=== PATIENT | male | born 1980 | race Caucasian/White ===

== ENCOUNTER → 2020-09-25 | Outpatient (CLI) | payer BC ==
[~2020-09-25] MED LIST: ALL DAY ALLERGY10 M3 PO; BUSPIRONE HCL15 MG PO; MELOXICAM7.5 MG PO; TRAZODONE HCL100 MG PO
[2020-09-25 11:32] LABS: URINE BILIRUBIN NEGATIVE (Negative); URINE BLOOD NEGATIVE (Negative); URINE CLARITY CLEAR; URINE COLOR YELLOW; URINE GLUCOSE-RANDOM* NEGATIVE (Negative); URINE KETONES NEGATIVE (Negative); URINE LEUKOCYTES-REFLEX NEGATIVE (Negative); URINE NITRITE-REFLEX NEGATIVE (Negative); URINE PROTEIN (DIPSTICK) NEGATIVE (Negative); URINE UROBILINOGEN 0.2 E.U./dl (0.2-1.0)
[2020-09-25 11:33] LABS: HEMATOCRIT 44.1 % (42.0-52.0); HEMOGLOBIN 14.7 gm/dL (14.0-18.0); MCH 29.9 pg (26.0-34.0); MCHC 33.3 g/dL (28.0-37.0); MCV 89.8 fL (80.0-100.0); RBC 4.9 mil/uL (4.50-6.00); RDW 13.7 % (10.5-14.5); WBC 4.4 thou/uL (4.0-11.0)
[2020-09-25 11:55] LABS: INR 0.94; PROTIME 10.3 Seconds (10.5-12.1)
[2020-09-25 11:56] LABS: ALBUMIN 3.8 g/dL (3.4-5.0); CALCIUM 8.7 mg/dL (8.5-10.1); CREATININE 0.9 mg/dL (0.7-1.3); POTASSIUM 4.5 mmol/L (3.5-5.1)
== END ==
LOC: PAC 10:21 → LAB 10:35
PROVIDERS: ATTEND Orthopaedic Surgery
DX: Z01.812 Encounter for preprocedural laboratory examination (principal); M17.12 Unilateral primary osteoarthritis, left knee; M17.11 Unilateral primary osteoarthritis, right knee

== ENCOUNTER → 2020-10-09 | Outpatient (CLI) | payer BC | LOC: LAB 09:06 → PAC 11:38 | PROVIDERS: ATTEND Student in an Organized Health Care Education/Training Program | DX: Z01.812 Encounter for preprocedural laboratory examination (principal); Z20.822 Contact with and (suspected) exposure to COVID-19 ==

== ENCOUNTER 2020-10-10 06:01 | Inpatient (IN) | payer BC ==
[~2020-10-10] VITALS: Ht 185.4 cm; Wt 86.2 kg
--- NOTE | ~2020-10-10 | O ---
Formerly [facility] [place] [address] OPERATIVE REPORT Name: JOSEE SOLANO Room #: 150-1 ADM IN M.R.#: [id number] Admission: 10/10/20 Attend Phys: Mayank Villagomez MD Discharge: Date of : 82 Report #: [id number] THIS REPORT FOR: cc: FAM - No family physician/PCP FAM - No family physician/PCP Mayank Villagomez MD ~ DOC #: [id number] Mayank Villagomez MD DATE OF SERVICE: 10/10/2020 PREOPERATIVE DIAGNOSIS: Bilateral knee medial compartment osteoarthritis. POSTOPERATIVE DIAGNOSIS: Bilateral knee medial compartment osteoarthritis. PROCEDURES: Bilateral medial compartment knee arthroplasty with Navio robotic assistance. SURGEON: Mayank Villagomez MD. PATTERNMAKER METAL: Amparo Cotton PA-C INDICATIONS FOR PATTERNMAKER METAL: Throughout the case, extensive retraction, manipulation of the knee was required. This was afforded to me by my mail handler assistant. ANESTHESIOLOGIST: LMA with adductor canal block. IMPLANTS: For the right, [employer] size 8 Journey II BCS Oxinium medial femoral component, size 7 tibia, and a size 8 polyethylene and for the left, [employer] size 9 Journey II BCS Oxinium medial femoral component, size 8 tibia and a size 8 polyethylene. TOURNIQUET TIME: 46 minutes for the right and 48 minutes for the left. ESTIMATED BLOOD LOSS: 50 mL. COMPLICATIONS: None. SPECIMENS: None. CONDITION UPON LEAVING THE OPERATING ROOM: Stable. INDICATIONS FOR PROCEDURE: The patient is a 40-year-old gentleman with severe bilateral knee medial compartment osteoarthritis. He had failed conservative measures for this and after discussion with him, he elected for bilateral medial compartment knee arthroplasty. [address] [address] OPERATIVE REPORT Name: JOSEE SOLANO Room #: 150-1 ADM IN M.R.#: [id number] Admission: 10/10/20 Attend Phys: Mayank Villagomez MD Discharge: Date of : 82 Report #: [id number] DESCRIPTION OF PROCEDURE: Risks, benefits, alternatives, complications were discussed in detail with the patient including but not limited to risk of anesthesia, risk of damage to nerves, arteries, blood vessels, risk for infection, bleeding, risk for continued knee pain, need for reoperation. Informed consent was obtained from the patient. Bilateral knees were appropriately marked in the preoperative holding area. Adductor canal blocks were placed by anesthesia, was brought to the operating room and placed in supine position on the operating room table. LMA anesthesia was induced without complication. Tourniquet was placed on bilateral thighs. Bilateral lower extremities were prepped and draped in normal sterile fashion. Timeout was performed properly identifying the patient and procedure as well as the instrumentation and implants. All in the operating room in agreement. Following ____ bilateral knees, the left lower extremity was exsanguinated and tourniquet inflated. Tourniquet time again was 46 minutes for the right and 48 minutes for the left knee. A medial parapatellar incision was made with 10 blade through the skin. Dissection was taken down sharply to the fascia and deep flaps were developed medially and laterally. Fresh 10 blade was used to make a medial parapatellar arthrotomy and the knee was inspected. There was severe medial compartment osteoarthritis. ACL and PCL were intact. Lateral compartment was well maintained. 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 Reference pins were placed in the femur and the tibia. The knee was digitally mapped using the [employer] robotic system. Intraoperative plan was made, and the right knee was sized and size 8 femur, size 7 tibia, and for the left size 9 femur and a size 8 tibia. After acceptance of the intraoperative plan, the femoral and tibial resections were made with a Navio bur. The tibia was cleaned up with a rasp and tibia was sized. The tibial trial was placed, pinned and drilled. The femoral trial was placed. This was then trialed with a size 8 polyethylene. Size 8 polyethylene demonstrated 1 mm laxity medially throughout range of motion of the knee. Trial components were removed. Bone ends were thoroughly irrigated with normal saline. Final components were cemented in place using standard cementation techniques. While the cement cured, a periarticular injection consisting of morphine, ropivacaine, epinephrine, Toradol was placed around the knee joint capsule. After the cement cured, the tourniquet was deflated. Hemostasis was obtained with Bovie cautery. Final size 8 polyethylene was placed. A gram of vancomycin was placed deep in the joint. The fascia was closed with 0 Vicryl. Skin was closed with 2-0 Vicryl, 3-0 Monocryl. Dermabond and a SCOTT dressing was applied. The patient tolerated this procedure well and went to recovery room under care of anesthesia postoperatively. Mayank Villagomez MD [facility] [address] [address] OPERATIVE REPORT Name: JOSEE SOLANO Room #: 150-1 ADM IN M.R.#: [id number] Admission: 10/10/20 Attend Phys: Mayank Villagomez MD Discharge: Date of : 82 Report #: [id number] By: [id number] Mayank Villagomez MD /nt
[2020-10-10 07:57] VITALS: BP 125/74
[2020-10-10 15:25] VITALS: BP 125/74
== END 2020-10-10 16:15 | disposition home or self-care (01) | DRG 462 ==
LOC: OR → TBA 06:01 → OR 09:51 → TBA 10:26 → OR 10:43 → TBA 16:15 → OR 17:14
PROVIDERS: ADMIT Orthopaedic Surgery; ATTEND Orthopaedic Surgery
PROC: 0SRC0L9 Replacement of Right Knee Joint with Medial Unicondylar Synthetic Substitute, Cemented, Open Approach (ICD-10-PCS; principal; 2020-10-10)
PROC: 8E0Y0CZ Robotic Assisted Procedure of Lower Extremity, Open Approach (ICD-10-PCS; principal; 2020-10-10)
PROC: 0SRD0L9 Replacement of Left Knee Joint with Medial Unicondylar Synthetic Substitute, Cemented, Open Approach (ICD-10-PCS; principal; 2020-10-10)
DX: M17.0 Bilateral primary osteoarthritis of knee (principal)
CPT/HCPCS: 50010; 50415; 50915; 50954; 51130; 51225; 51320; 52001; 52282; 53000; 53078; 53370; 54118; 56527; 56528; 57095; 57103; 57110; 57127; 57179; 64042